=== PATIENT | female | born 1970 | race African-American/Black ===

== ENCOUNTER 2017-03-08 05:20 | Emergency (ER) | payer OTHER, MEDICAID ==
[~2017-03-08] VITALS: Ht 152.4 cm; Wt 56.7 kg
[~2017-03-08 05:20] MED LIST: AUGMENTIN 875-1 EAC1 ORAL; AURALGAN OTIC1 DROP RIGHT EAR; CIPRO500 MG PO; CORTISPORIN EAR10 ML LEFT EAR; FLAGYL500 MG ORAL; HYDROCODON-ACE1 EAC4 ORAL; HYDROCORTISONE28 G5 TP; IBUPROFEN600 MG ORAL; IBUPROFEN800 MG ORAL; METROGEL EXT; METROGEL-VAGINA70 GM VG; NKM; NORCO 5-325 TA1 EACH ORAL; NORCO 5-325 TA1 EACH PO; VALIUM10 MG ORAL
[2017-03-08 05:35] VITALS: BP 100/70
--- NOTE | 2017-03-08 05:53 | Emergency Room Report ---
History of Present Illness General Chief Complaint: Dizziness Source: Patient Present Illness HPI Patient presents with fatigue and dizziness. 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 Mother is blind and deaf. 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 She feels tired/exhausted. Yesterday she had a headache. She also had nausea after taking Excedrin. There is no vomiting. She has some constipation. There's no polyuria or polydipsia. Not know thyroid. No weight change. In addition to that she feels her shortness of breath on occasion. She's depressed but not suicidal. She feels exhausted. She's been seen for hypokalemia and has been eating bananas. She's also been seen in past for generalized weakness. Allergies: Coded Allergies: No Known Allergies (Unverified , 06/29/12) Patient History Past Medical History: see triage record, old chart reviewed Social History: Denies: alcohol use, drug use, smoking Social History Narrative Cares for ill mother Reviewed Nursing Documentation: PMH: Agreed, PSxH: Agreed Nursing Documentation-PMH Hx Hypertension: No Hx Pacemaker: No Hx Asthma: No Hx COPD: No Hx Diabetes: No Hx Cancer: No Hx Gastrointestinal Problems: No Hx Dialysis: No Hx Neurological Problems: No Hx Cerebrovascular Accident: No Hx Seizures: No Review of Systems All Other Systems: negative except mentioned in HPI Physical Exam Vital Signs Date Time Temp Pulse Resp B/P Pulse Ox O2 Delivery O2 Flow Rate FiO2 03/08/17 05:27 97.5 95 16 108/72 98 Room Air Sp02 EP Interpretation: reviewed, normal General Appearance: well appearing, GCS 15, mild distress - tearful but calm Head: normocephalic Eyes: bilateral eye EOMI, bilateral eye PERRL, bilateral eye normal inspection ENT: moist mucus membranes Neck: full range of motion, supple, thyroid normal Respiratory: lungs clear, normal breath sounds Cardiovascular #1: regular rate, rhythm Cardiovascular #2: 2+ radial (R) Gastrointestinal: normal inspection, normal bowel sounds, non tender, no mass, non-distended Musculoskeletal: back normal, gait/station normal, normal range of motion Neurologic: alert, oriented x3, 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 Ddx: electrolyte abnormality, depression, anxiety, stress, occult infection, thyroid dysfunction. Evaluation with EKG, CXR, labs, UA. Treatment with IV hydration and cardiac observation. Labs significant for UTI. See other results below. ESR slightly elevated. Patient improved with treatment. Discussed need for help at home. She is worried others will try to have mother placed. Discussed perimenopausal issues. Antibiotics begun. Patient stable for outpatient observation and treatment. Laboratory Tests Test 03/08/17 06:15 White Blood Count 4.5 K/UL (4.8-10.8) L Red Blood Count 4.40 M/UL (4.20-5.40) Hemoglobin 13.3 G/DL (12.0-16.0) Hematocrit 38.7 % (37.0-47.0) Mean Corpuscular Volume 88 FL (80-99) Mean Corpuscular Hemoglobin 30.1 PG (27.0-31.0) Mean Corpuscular Hemoglobin Concent 34.3 G/DL (32.0-36.0) Red Cell Distribution Width 11.0 % (11.6-14.8) L Platelet Count 255 K/UL (150-450) Mean Platelet Volume 9.0 FL (6.5-10.1) Neutrophils (%) (Auto) 42.6 % (45.0-75.0) L Lymphocytes (%) (Auto) 44.9 % (20.0-45.0) Monocytes (%) (Auto) 7.7 % (1.0-10.0) Eosinophils (%) (Auto) 3.3 % (0.0-3.0) H Basophils (%) (Auto) 1.4 % (0.0-2.0) Erythrocyte Sedimentation Rate 23 MM/HR (0-20) H Urine Color Yellow Urine Appearance Clear Urine pH 5 (4.5-8.0) Urine Specific [place] 1.025 (1.005-1.035) Urine Protein Negative (NEGATIVE) Urine Glucose (UA) Negative (NEGATIVE) Urine Ketones Negative (NEGATIVE) Urine Occult Blood 1+ (NEGATIVE) H Urine Nitrite Negative (NEGATIVE) Urine Bilirubin Negative (NEGATIVE) Urine Urobilinogen Normal MG/DL (0.0-1.0) Urine Leukocyte Esterase 2+ (NEGATIVE) H Urine RBC 2-4 /HPF (0 - 2) H Urine WBC 5-10 /HPF (0 - 2) H Urine Squamous Epithelial Cells Few /LPF (NONE/OCC) Urine Bacteria Few /HPF (NONE) Sodium Level 139 mEQ/L (135-145) Potassium Level 3.4 mEQ/L (3.4-4.9) Chloride Level 102 mEQ/L (98-107) Carbon Dioxide Level 24 mEQ/L (20-30) Anion Gap 13 (5-15) Blood Urea Nitrogen 8 mg/dL (7-23) Creatinine 0.7 mg/dL (0.5-0.9) Estimate Glomerular Filtration Rate > 60 mL/min (>60) Glucose Level 92 mg/dL (74-106) Calcium Level 8.9 mg/dL (8.6-10.2) Total Bilirubin 0.2 mg/dL (0.0-1.2) Aspartate Amino Transferase (AST) 15 U/L (5-40) Alanine Aminotransferase (ALT) 12 U/L (3-33) Alkaline Phosphatase 53 U/L (35-104) Total Creatine Kinase 58 U/L (26-140) Troponin I < 0.30 ng/mL (<=0.30) Total Protein 6.8 g/dL (6.6-8.7) Albumin 4.0 g/dL (3.5-5.2) Globulin 2.8 g/dL Albumin/Globulin Ratio 1.4 (1.0-2.7) Thyroid Stimulating Hormone (TSH) 3.750 uIU/mL (0.300-4.500) Salicylates Level < 1 mg/dL (10-30) L Urine Opiates Screen Negative (NEGATIVE) Acetaminophen Level < 10 ug/mL (10-30) L Urine Barbiturates Screen Negative (NEGATIVE) Phencyclidine (PCP) Screen Negative (NEGATIVE) Urine Amphetamines Screen Negative (NEGATIVE) Urine Benzodiazepines Screen Negative (NEGATIVE) Urine Cocaine Screen Negative (NEGATIVE) Urine Marijuana (THC) Screen Negative (NEGATIVE) EKG Diagnostic Results Rate: normal Rhythm: NSR ST Segments: no acute changes Rhythm Strip Diag. Results EP Interpretation: yes Rhythm: NSR, no PVC's, no ectopy Chest X-Ray Diagnostic Results EP Interpretation: Yes Findings: no consolidation, no effusion, no pneumothorax, no acute cardiopulmonary disease Number of Views: 1 Last Vital Signs Date Time Temp Pulse Resp B/P Pulse Ox O2 Delivery O2 Flow Rate FiO2 03/08/17 08:03 97.7 76 16 103/70 100 Room Air Status: improved Disposition: HOME, SELF-CARE Condition: Improved Scripts Nitrofurantoin Monohyd/M-Cryst* (MACROBID 100 MG*) 100 Mg Capsule 100 MG ORAL EVERY 12 HOURS, #14 CAP Prov: Brad Andujar M.D. 03/08/17 Hydroxyzine Pamoate (VISTARIL) 25 Mg Capsule 25 MG PO Q8HR Y for insomnia/anxiety, #10 CAP Prov: Brad Andujar M.D. 03/08/17 Brad Andujar M.D. Mar 08, 2017 05:53
[2017-03-08 06:29] LABS: APPEARANCE,URINE CLEAR; KETONES,URINE NEGATIVE (NEGATIVE); LEUKOCYTE ESTERASE ,URINE 2+ (NEGATIVE); NITRITE,URINE NEGATIVE (NEGATIVE); PH,URINE 5 (4.5-8.0); PROTEIN,URINE NEGATIVE (NEGATIVE); UROBILINOGEN,URINE NORMAL MG/DL (0.0-1.0)
[2017-03-08] MEDS ORDERED: NKM (06:39)
[2017-03-08 06:42] LABS: ACETAMINOPHEN < 10 ug/mL (10-30); ALANINE AMINOTRANSFERASE 12 U/L (3-33); ALBUMIN/GLOBULIN RATIO 1.4 (1.0-2.7); ANION GAP 13 (5-15); ASPARTATE AMINO TRANSFERASE 15 U/L (5-40); CALCIUM 8.9 mg/dL (8.6-10.2); CARBON DIOXIDE 24 mEQ/L (20-30); CHLORIDE 102 mEQ/L (98-107); CREATININE 0.7 mg/dL (0.5-0.9); GLOMERULAR FILTRATION RATE > 60 mL/min (>60); HEMOLYSIS 6; POTASSIUM 3.4 mEQ/L (3.4-4.9); SODIUM 139 mEQ/L (135-145); TOTAL PROTEIN 6.8 g/dL (6.6-8.7); TROPONIN I < 0.30 ng/mL (<=0.30)
[2017-03-08 06:48] LABS: BACTERIA,URINE FEW /HPF; SQUAMOUS EPITHELIAL CELL,UR FEW /LPF (NONE/OCC)
[2017-03-08 07:07] VITALS: BP 103/70
[2017-03-08] MEDS ORDERED: VISTARIL25 M1 PO (07:31)
[2017-03-08] MEDS ORDERED: NITROFURANTOIN100 M2 ORAL (07:31)
[2017-03-08 07:46] LABS: ERYTHROCYTE SEDIMENTATION RATE 23 MM/HR (0-20)
[2017-03-08 07:47] LABS: BASOPHILS % (AUTO) 1.4 % (0.0-2.0); EOSINOPHILS % (AUTO) 3.3 % (0.0-3.0); LYMPHOCYTES % (AUTO) 44.9 % (20.0-45.0); MEAN CORPUSCULAR HEMOGLOBIN 30.1 PG (27.0-31.0); MEAN CORPUSCULAR HGB CONC 34.3 G/DL (32.0-36.0); MEAN CORPUSCULAR VOLUME 88 FL (80-99); MONOCYTES % (AUTO) 7.7 % (1.0-10.0); NEUTROPHILS % (AUTO) 42.6 % (45.0-75.0); PLATELET COUNT 255 K/UL (150-450); WHITE BLOOD COUNT 4.5 K/UL (4.8-10.8)
[2017-03-08 08:03] VITALS: BP 103/70
--- NOTE | 2017-03-08 11:25 | Diagnostic Imaging Report ---
Indication: Chest Pain Comparison: 12/07/11 A single view chest radiograph was obtained. Findings: Cardiomediastinal appearance is within normal limits for age. Pulmonary vascularity is appropriate. The diaphragmatic contour is smooth and costophrenic angles are sharp. No pleural effusions are identified. The bones are unremarkable. Impression: No acute findings
--- NOTE | 2017-03-09 07:25 | Cardiology Report ---
APPROVED REPORT EKG Measurement Heart [id number] Normal sinus rhythm Normal ECG
== END 2017-03-08 08:03 | disposition home or self-care (01) ==
LOC: EMR 05:43
DX: R53.1 Weakness (principal); N30.00 Acute cystitis without hematuria; F43.9 Reaction to severe stress, unspecified
CPT/HCPCS: 36415; 71010; 80053; 80300; 81003; 82550; 84443; 84484; 85025; 85651; 93005; 96360; 99284; G0480; 80329

== ENCOUNTER 2018-05-28 21:34 | Emergency (ER) | payer MEDICAID, OTHER ==
[~2018-05-28 21:34] MED LIST changes: +NITROFURANTOIN100 M2 ORAL; +VISTARIL25 M1 PO
--- NOTE | 2018-05-28 22:19 | Emergency Room Report ---
History of Present Illness General Chief Complaint: To Be Triaged Present Illness HPI This patient presents with chief complaint of migraine. She was called multiple time but not respond. I do not see the patient. Allergies: Coded Allergies: No Known Allergies (Unverified , 06/29/12) Nursing Documentation-PMH Hx Hypertension: No Hx Pacemaker: No Hx Asthma: No Hx COPD: No Hx Diabetes: No Hx Cancer: No Hx Gastrointestinal Problems: No Hx Dialysis: No Hx Neurological Problems: No Hx Cerebrovascular Accident: No Hx Seizures: No Medical Decision Making Diagnostic Impression: Primary Impression: Headache Status: unchanged Disposition: LEFT W/OUT BEING SEEN Condition: Stable SHERICE LICEA M.D. May 28, 2018 22:19
== END 2018-05-28 22:06 | disposition left against medical advice (07) ==
LOC: EMR 22:00
DX: Z53.21 Procedure and treatment not carried out due to patient leaving prior to being seen by health care provider (principal)

== ENCOUNTER 2018-06-23 19:22 | Emergency (ER) | payer MEDICAID ==
[~2018-06-23] VITALS: Ht 152.4 cm; Wt 54.4 kg
[2018-06-23 19:30] VITALS: BP 99/64
--- NOTE | 2018-06-23 19:36 | Emergency Room Report ---
History of Present Illness General Chief Complaint: Skin Rash/Abscess Source: Patient, Medical Record Present Illness HPI 47-year-old female presents to the emergency department complaining of 8 out of 10 in severity pain, swelling, erythema and increased temperature palpation to lateral aspect of the right ankle and addition to the lateral aspect of the left elbow 5 days. Patient reports initial symptoms of itching, followed by swelling erythema and increased temperature palpation. Patient denies fevers or chills. Denies trauma or fall. Pt. denies fevers, chills or swollen tender lymph nodes. Denies lesions/rashes elsewhere on the body. Denies new medications or body washes or creams. Denies swelling of the lips, tongue , throat or airway. Denies wheezing, or shortness of breath. Denies recent travel , recent illness or ill contacts. denies blisters, oral lesions, or sloughing of the skin Allergies: Coded Allergies: No Known Allergies (Unverified , 06/29/12) Patient History Past Medical History: see triage record Past Surgical History: none Pertinent Family History: none Last Menstrual Period: 06/21/18 Now: No Reviewed Nursing Documentation: PMH: Agreed; PSxH: Agreed Nursing Documentation-PMH Past Medical History: No History, Except For Hx Hypertension: No Hx Pacemaker: No Hx Asthma: No Hx COPD: No Hx Diabetes: No Hx Cancer: No Hx Gastrointestinal Problems: No Hx Dialysis: No Hx Neurological Problems: No Hx Cerebrovascular Accident: No Hx Seizures: No Review of Systems All Other Systems: negative except mentioned in HPI Physical Exam Vital Signs Date Time Temp Pulse Resp B/P (MAP) Pulse Ox O2 Delivery O2 Flow Rate FiO2 06/23/18 19:27 97.6 89 17 99/64 97 Room Air 97.5 Sp02 EP Interpretation: reviewed, normal General Appearance: no apparent distress, alert, GCS 15, non-toxic Head: normocephalic, atraumatic Eyes: bilateral eye normal inspection, bilateral eye PERRL ENT: hearing grossly normal, no angioedema, normal voice Neck: full range of motion Respiratory: lungs clear, normal breath sounds, no wheezing, speaking full sentences Cardiovascular #1: regular rate, rhythm Musculoskeletal: back normal, gait/station normal, normal range of motion, non- tender Neurologic: alert, oriented x3, responsive, motor strength/tone normal, sensory intact, normal gait, speech normal, grossly normal Psychiatric: judgement/insight normal Skin: normal color, warm/dry, well hydrated, other - two discrete areas of induration and erythema with increased temperature to palpation, some soft tissue swelling noted, no fluctuance. one is on the lateral left elbow, and the other is on the lateral right ankle. no bleeding, FROM of both joints. approximately 1.5 inches in diameter area of erythema each Medical Decision Making PA Attestation Dr. Patel is my supervising Physician whom patient management has been discussed with. Diagnostic Impression: Primary Impression: Cellulitis Qualified Codes: L03.90 - Cellulitis, unspecified Additional Impression: Insect bite Qualified Codes: W57.XXXA - Bitten or stung by nonvenomous insect and other nonvenomous arthropods, initial encounter ER Course 47-year-old female presents to the emergency department complaining of 8 out of 10 in severity pain, swelling, erythema and increased temperature palpation to lateral aspect of the right ankle and addition to the lateral aspect of the left elbow 5 days. Patient reports initial symptoms of itching, followed by swelling erythema and increased temperature palpation. Patient denies fevers or chills. Denies trauma or fall. Pt. denies fevers, chills or swollen tender lymph nodes. Denies lesions/rashes elsewhere on the body. Denies new medications or body washes or creams. Denies swelling of the lips, tongue , throat or airway. Denies wheezing, or shortness of breath. Denies recent travel , recent illness or ill contacts. denies blisters, oral lesions, or sloughing of the skin Ddx considered but are not limited to cellulitis, scabies, insect bites, tic bites, spider bites, contact dermatitis, Drug reaction, allergic reaction, fungal infection, lice. Vital signs: are WNL, pt. is afebrile H&PE are most consistent with insect bites with secondary infection. no evidence of Septic joint or severe allergic reaction. ORDERS: none required at this time, the diagnosis is clinical ED INTERVENTIONS: None required at this time. DISCHARGE: At this time pt. is stable for d/c to home. Will provide printed patient care instructions, and any necessary prescriptions. Care plan and follow up instructions have been discussed with the patient prior to discharge. Last Vital Signs Date Time Temp Pulse Resp B/P (MAP) Pulse Ox O2 Delivery O2 Flow Rate FiO2 06/23/18 19:27 97.6 89 17 99/64 97 Room Air 97.5 Disposition: HOME, SELF-CARE Condition: Stable Scripts Ibuprofen* (MOTRIN*) 600 Mg Tablet 600 MG ORAL THREE TIMES A DAY, #20 TAB 0 Refills Prov: Krysten Price 06/23/18 Hydrocortisone (Hydrocortisone Cream 2.5%) Y Cream.appl 1 APPLIC TP BID, #22 GM Prov: Krysten Price 06/23/18 Cephalexin* (KEFLEX*) 500 Mg Capsule 500 MG ORAL EVERY 12 HOURS for 7 Days, #14 CAP 0 Refills Prov: Krysten Price 06/23/18 Diphenhydramine Hcl (BENADRYL ALLERGY) 25 Mg Tablet 25 MG PO Q6HR, #20 TAB Prov: Krysten Price 06/23/18 Patient Instructions: Cellulitis, [id number], Insect Bite, Qnma-ca-[id number] Additional Instructions: Take medications as directed. Follow up with a Primary Care Provider in 3-5 days, even if your symptoms have resolved. --Please review list of primary care clinics, if you do not already have a primary care provider Return sooner to ED if new symptoms occur, or current symptoms become worse. Do not drink alcohol, drive, or operate heavy machinery while taking Benadryl as this may cause drowsiness. - Please note that this Emergency Department Report was dictated using [email or web address] technology software, occasionally this can lead to erroneous entry secondary to interpretation by the dictation equipment. Krysten Price Jun 23, 2018 19:36
[2018-06-23] MEDS ORDERED: IBUPROFEN600 MG ORAL (19:38)
[2018-06-23] MEDS ORDERED: HYDROCORTISONE30 G2 TP (19:38)
[2018-06-23] MEDS ORDERED: BENADRYL ALLERG25 M1 PO (19:38)
[2018-06-23] MEDS ORDERED: CEPHALEXIN500 MG ORAL (19:38)
[2018-06-23 19:57] VITALS: BP 99/64
== END 2018-06-23 19:58 | disposition home or self-care (01) ==
LOC: EMR 19:58
DX: L03.115 Cellulitis of right lower limb (principal); L03.114 Cellulitis of left upper limb; S50.362A Insect bite (nonvenomous) of left elbow, initial encounter; S90.561A Insect bite (nonvenomous), right ankle, initial encounter; W57.XXXA Bitten or stung by nonvenomous insect and other nonvenomous arthropods, initial encounter; Y92.89 Other specified places as the place of occurrence of the external cause
CPT/HCPCS: 99283

== ENCOUNTER 2019-12-01 17:30 | Emergency (ER) | payer MEDICAID ==
[~2019-12-01] VITALS: Ht 152.4 cm; Wt 59.0 kg
[~2019-12-01 17:30] MED LIST changes: +AZITHROMYCIN500 MG ORAL; +BENADRYL ALLERG25 M1 PO; +CEPHALEXIN500 MG ORAL; +FLUCONAZOLE100 MG ORAL; +HYDROCORTISONE30 G2 TP; +METRONIDAZOLE500 MG ORAL
--- NOTE | 2019-12-01 17:35 | NUR ---
ED Nurse Note: pt. ambulated to ED with c/o dizziness and left ear pain for 2 days, no fever on triage. Placed on bed, family member at bedside.
[2019-12-01 17:42] VITALS: BP 110/77
[2019-12-01] MEDS ORDERED: Meclizine 25mg tab ORAL ONE (18:15)
--- NOTE | 2019-12-01 18:20 | Emergency Room Report ---
History of Present Illness General Chief Complaint: Earache Source: Patient Present Illness HPI 49-year-old female presents to the emergency department complaining of 10 out of 10 severity left-sided ear pain with vertigo x5 days. 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 Patient reports that she got water in her left ear while showering the day prior to her symptoms. Patient reports having progressive pain in the ear, loss of hearing and exacerbation of her vertigo symptoms. She reports exacerbation when she lays down or sits up from laying down or turns her head too quickly. She describes the room spinning around her. Patient denies headache, slurred speech, weakness, paresthesias. Patient denies recent head trauma. She reports tenderness to the external left ear. She states she has been taking Tylenol with no relief. She reports she was told multiple times by ENT specialist that she require surgery as this is a recurrent problem she states that she has not gone with the ENT specialist recommendation as she is worried about possible side effects of surgery. She denies fevers, chills, swollen tender lymph nodes. She denies neck pain/stiffness or photophobia. She denies bleeding from the ear but describes having some clear discharge intermittently. She denies Q-tip use. No other aggravating or relieving factors. Allergies: Coded Allergies: No Known Allergies (Unverified , 06/29/12) Patient History Past Medical History: see triage record Past Surgical History: none Pertinent Family History: none Reviewed Nursing Documentation: PMH: Agreed; PSxH: Agreed Nursing Documentation-PMH Past Medical History: No History, Except For Hx Hypertension: No Hx Pacemaker: No Hx Asthma: No Hx COPD: No Hx Diabetes: No Hx Cancer: No Hx Gastrointestinal Problems: No Hx Dialysis: No Hx Neurological Problems: No Hx Cerebrovascular Accident: No Hx Seizures: No Review of Systems All Other Systems: negative except mentioned in HPI Physical Exam Vital Signs Date Time Temp Pulse Resp B/P (MAP) Pulse Ox O2 Delivery O2 Flow Rate FiO2 12/01/19 17:33 97.3 89 17 110/77 (88) 99 Room Air Sp02 EP Interpretation: reviewed, normal General Appearance: no apparent distress, alert, GCS 15, non-toxic Head: normocephalic, atraumatic Eyes: bilateral eye normal inspection, bilateral eye PERRL, bilateral eye other - no photophobia ENT: hearing grossly normal, normal voice, other - ruptured left TM with swelling of the left canal, mild macerated appearance. MOderate exterinal auricle and tragus ttp on the left Neck: full range of motion, no meningismus Respiratory: lungs clear, normal breath sounds, speaking full sentences Cardiovascular #1: regular rate, rhythm Musculoskeletal: normal range of motion, gait/station normal, non-tender Neurologic: alert, motor strength/tone normal, oriented x3, sensory intact, responsive, speech normal, grossly normal, no focal defects, other - normal finger to nose, negative rhomberg, no pronator drift. No verticle nystagmus. Psychiatric: judgement/insight normal Lymphatic: no adenopathy Medical Decision Making PA Attestation Dr. Batista Is my supervising Physician whom patient management has been discussed with. Diagnostic Impression: Primary Impression: Vertigo Additional Impression: otitis externa ER Course 49-year-old female presents to the emergency department complaining of 10 out of 10 severity left-sided ear pain with vertigo x5 days. 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 Patient reports that she got water in her left ear while showering the day prior to her symptoms. Patient reports having progressive pain in the ear, loss of hearing and exacerbation of her vertigo symptoms. She reports exacerbation when she lays down or sits up from laying down or turns her head too quickly. She describes the room spinning around her. Patient denies headache, slurred speech, weakness, paresthesias. Patient denies recent head trauma. She reports tenderness to the external left ear. She states she has been taking Tylenol with no relief. She reports she was told multiple times by ENT specialist that she require surgery as this is a recurrent problem she states that she has not gone with the ENT specialist recommendation as she is worried about possible side effects of surgery. She denies fevers, chills, swollen tender lymph nodes. She denies neck pain/stiffness or photophobia. She denies bleeding from the ear but describes having some clear discharge intermittently. She denies Q-tip use. No other aggravating or relieving factors. Ddx considered but are not limited to Mnire's, BPPV, labyrinthitis, cerebellar stroke, hypovolemia, cardiac cause. Vital signs: are WNL, pt. is afebrile H&PE are most consistent with : Ruptured left tympanic membrane with mild otitis externa in addition to vertigo most likely secondary to fluid behind the eardrum. No focal deficit to indicate TIA or CVA. No vertical nystagmus. Because of lack of focality and red flags, I see no need for CT scan. ORDERS: None required at this time. ED INTERVENTIONS: Meclizine 25mg PO Upon reevaluation patient states that her vertigo symptoms have improved. DISCHARGE: At this time pt. is stable for d/c to home. Will provide printed patient care instructions, and any necessary prescriptions. Care plan and follow up instructions have been discussed with the patient prior to discharge. Last Vital Signs Date Time Temp Pulse Resp B/P (MAP) Pulse Ox O2 Delivery O2 Flow Rate FiO2 12/01/19 17:42 97.3 17 110/77 99 Room Air 12/01/19 17:33 89 Disposition: HOME, SELF-CARE Condition: Stable Scripts Ofloxacin (OFLOXACIN) 5 Ml Drops 5 DROP OT BID for 7 Days, #5 ML Prov: Krysten Price 12/01/19 Meclizine Hcl* (VERTICALM*) 25 Mg Tablet 25 MG ORAL THREE TIMES A DAY, #15 TAB Prov: Krysten Price 12/01/19 Patient Instructions: Otitis Externa, [id number], Vertigo, Cmhu-[id number]-Ylms Additional Instructions: Take medications as directed. Follow up with a Primary Care Provider in 3-5 days, even if your symptoms have resolved. Return sooner to ED if new symptoms occur, or current symptoms become worse. Do not drink alcohol, drive, or operate heavy machinery while taking Meclizine as this may cause drowsiness. - Please note that this Emergency Department Report was dictated using [employer] automatic technology software, occasionally this can lead to erroneous entry secondary to interpretation by the dictation equipment. Krysten Price Dec 01, 2019 18:20
[2019-12-01] MEDS ORDERED: OFLOXACIN5 ML OT (19:03)
[2019-12-01] MEDS ORDERED: VERTICALM25 MG ORAL (19:03)
[2019-12-01 19:08] VITALS: BP 114/80
--- NOTE | 2019-12-01 19:08 | NUR ---
ED Nurse Note: Pt cleared by health care Provider for discharge. DC instructions/prescription was given and explained to pt and verbalized understanding of teachings. Instructed pt to follow up with primary care physican within one week. All medical deviecs such as ID band removed. Pt is AAO x4, ambulatory and left with all personal belongings.
== END 2019-12-01 19:08 | disposition home or self-care (01) ==
LOC: EMR 17:50
DX: H60.92 Unspecified otitis externa, left ear (principal); R42 Dizziness and giddiness
CPT/HCPCS: 99282